=== PATIENT | female | born 1985 | race Caucasian/White ===

== ENCOUNTER 2023-08-09 10:06 | Emergency (ER) | payer MEDICAID, SELFPAY ==
[2023-08-09 10:08] VITALS: BP 130/90; PULSE 112; RESP 16; TEMP 36.4; O2SAT 97; BMI 38.9
--- NOTE | 2023-08-09 10:42 | ED.VIS.DENTA ---
HPI History of Present Illness Chief Complaint: Dental Narrative Narrative: 37-year-old female presents with right upper jaw pain and swelling from a dental abscess that she has had for the last few days. She states that she was seen in urgent care and diagnosed with a dental abscess. She had mild swelling of her cheek yesterday. She started clindamycin 450 mg 3 times a day and is supposed to follow-up with her dentist. She noticed this morning when she awoke that her right cheek was more swollen and she is having more facial pain. She somewhat lightheaded as well. She denies fevers or chills. She is a smoker. PFSH PFSH Home Medications ibuprofen 800 mg tablet 800 mg PO Q8H PRN pain #30 tabs 08/09/23 [Rx Last Taken Unknown] tramadol 50 mg tablet 50 mg PO Q6H PRN pain 3 days #12 tabs 08/09/23 [Rx Last Taken Unknown] Allergy/AdvReac Type Severity Reaction Status Date / Time Penicillins Allergy Severe Anaphylaxis Verified 08/09/23 10:08 amoxicillin Allergy Unknown PT UNSURE Verified 08/09/23 10:08 OF REACTION ROS ROS ED ROS Narrative Constitutional: No fever, no chills. HEENT: No sore throat. No neck pain. No loss of vision. No rhinorrhea. No swelling of right cheek. Positive pain in right upper jaw/dental pain. Cardiovascular: No chest pain. No palpitations. No pedal edema. Respiratory: No cough, no shortness of breath. Abdominal: No abdominal pain. No nausea. No vomiting. Genitourinary: No dysuria. No hematuria. Musculoskeletal: No myalgias. No arthralgias. Neurologic: No headaches. No dizziness. Positive lightheadedness. Skin: No rash. No change in color. Psychiatric: No depression. No anxiety. EXAM Physical Exam Narrative Exam Narrative: Afebrile. Vital signs noted. Toxic appearing. HEENT: Normocephalic. Atraumatic. PERRL, EOMI. Neck soft and supple. No point tenderness or step off. Swelling of right cheek. Positive fillings with poor dentition right upper jaw and molars. No fluctuance of the gum. Cardiovascular: Regular rate and rhythm. No murmurs, rubs, or gallops appreciated. Respiratory: No tachypnea. Lungs clear to auscultation bilaterally. Gastrointestinal: Abdomen soft, nontender, with normoactive bowel sounds. No rebound or guarding. Neurological: Awake. Alert. Nonfocal, nonlateralizing. Skin: No rash. Normal color. No pallor. Musculoskeletal: No pedal edema. Full range of motion extremities. Const Vital Signs: 08/09/23 10:08 Temperature 97.6 F L Temperature Source Temporal Pulse Rate 112 H Respiratory Rate 16 Blood Pressure 130/90 H Blood Pressure Mean 103 Pulse Ox 97 Oxygen Delivery Method Room Air MDM MDM MDM Narrative Medical decision making narrative: Feel that the patient has pain and swelling secondary to inflammation from a periapical/dental abscess. I did offer needle aspiration of her cheek, but she declined. I do feel that is more inflammatory. She is only taking 2 tablets of the acetaminophen/ibuprofen combination pill. She was told to stop taking this combination pill and I wrote her prescription for 800 mg ibuprofens to take every 8 hours. Additionally, I wrote her 12 tablets of tramadol for breakthrough pain. Smoking cessation was discussed. No feel laboratory work or imaging is indicated. I do feel that this is secondary to her smoking and continued dental abscess. I feel she can be discharged to follow-up with a dentist. Return instructions to the emergency department were reviewed. Disposition is discharged home in stable condition. Patient is agreeable to the plan. History & Record Review Discussion w/independent historian: Patient Discharge Plan Triage Chief Complaint: Dental ED Provider: Naresh Gonzalez Dx/Rx/DC Orders Clinical Impression: Swelling of right side of face, Dental abscess Instructions: ED Dental Abscess Prescriptions: New ibuprofen 800 mg tablet 800 mg PO Q8H PRN (Reason: pain) Qty: 30 0RF tramadol 50 mg tablet 50 mg PO Q6H PRN (Reason: pain) 3 Days Qty: 12 0RF Primary Care Provider: Waqar Briones Referrals: Waqar Briones MD [Primary Care Provider] - 3-5 Days if not improving Activity Restrictions/Additional Instructions: Follow-up with your dentist soon as possible. Stop smoking. Continue your clindamycin. Return with fever, new or worsening symptoms. Take combination ibuprofen, and take the prescription strength ibuprofen. You may take tramadol as needed for breakthrough pain. Disposition Disposition: Home, Self Care
== END 2023-08-09 11:00 | disposition home or self-care (01) ==
LOC: ED 10:54
PROVIDERS: Emergency Provider Emergency Medicine; PCP Family Medicine; Visit Provider Emergency Medicine
DX: K04.7 Periapical abscess without sinus (principal); R22.0 Localized swelling, mass and lump, head; F17.200 Nicotine dependence, unspecified, uncomplicated
CPT/HCPCS: 99282

== ENCOUNTER 2024-01-21 07:42 | Emergency (ER) | payer MEDICAID, SELFPAY ==
[2024-01-21 07:43] VITALS: BP 161/105; PULSE 71; RESP 16; TEMP 36.1; O2SAT 100; BMI 43.9
[2024-01-21 07:45] VITALS: BP 157/102; PULSE 67; RESP 14; TEMP 36.1; O2SAT 98
--- NOTE | 2024-01-21 08:03 | CT_ITS ---
INDICATION: Kidney Stone EXAMINATION: CT ABDOMEN AND PELVIS WITHOUT CONTRAST - CT Abdomen And Pelvis W/O Contrast Injection TECHNIQUE: Helically acquired images were obtained of the abdomen and pelvis without oral or IV contrast. The protocol utilizes one or more of the following dose reduction techniques: automated exposure control, adjustment of mA and/or kV according to patient size,and/or use of iterative reconstruction technique. IV Contrast dosage and agent: None. Oral contrast: None. RADIATION DOSAGE (If Supplied By Facility): CTDIvol = ( 22.71 ) mGy, DLP = ( 1096.05 ) mGycm COMPARISON: No relevant prior comparison study available FINDINGS: LOWER CHEST: Lung bases are clear. No cardiomegaly or pericardial effusion. The lack of intravenous contrast limits evaluation of solid visceral organs. LIVER: There is a too small to characterize low-attenuation focus within the left hepatic lobe which may reflect a cyst or hemangioma. GALLBLADDER AND BILIARY TREE: There are surgical clips within the gallbladder fossa consistent with prior cholecystectomy. No intra- or extrahepatic biliary ductal dilation. PANCREAS: No focal cystic or solid mass. SPLEEN: Normal size without focal cystic or solid mass. ADRENAL GLANDS: No nodules. KIDNEYS AND URETERS: Normal renal size and position. No hydronephrosis. PERITONEUM: No ascites or free air. No other fluid collection. There are 2 surgical within the pelvis. BOWEL: No evidence of acute appendicitis. No stomach or bowel distension. There are diverticula arising from the colon. No focal inflammatory change. LYMPH NODES: No enlarged mesenteric or retroperitoneal lymph nodes. VESSELS: Aorta is non-dilated. There are peripheral calcifications of the abdominal aorta consistent with atherosclerosis. URINARY BLADDER: Unremarkable. REPRODUCTIVE ORGANS: No pelvic masses. ABDOMINAL WALL: No discrete abdominal or pelvic wall hernia. BONES: There is degenerative disc disease at L5-S1. CT/Abdomen/Pelvis without Cont IMPRESSION: No acute intra-abdominal process. Colonic diverticulosis. Atherosclerosis. Electronically Signed: Alondra Adame MD at 9:19 EDT ,
--- NOTE | 2024-01-21 08:04 | EDS_ITS ---
HPI History of Present Illness Chief Complaint: Flank Pain Informant: patient Narrative Narrative: 38-year-old female presenting to the emergency room with a chief complaint of low back pain. Patient notes pain in the low back past 3 days. Patient states it is wax and wane but always has been there. She feels better laying on her right side. She notes that the left leg feels sore when she moves. She denies any foot drop or sensory loss. No loss of bowel or bladder control. She does note that her urine has been darker than normal. She notes a history of kidney stones. She denies any known inciting event that would have injured her back. She states she went to urgent care and was referred to emergency. She states she was told that she did not have blood in her urine. She denies history of cancer or immunosuppression IV drug use recent fever or rashes. [facility] Medical History (Updated 01/21/24 @ 09:[address] Param Gant DO) Kidney stone Home Medications ?Medication ?Instructions ?Recorded ?Last Taken ?Type cyclobenzaprine 10 mg tablet 10 mg PO TID PRN Muscle Spasm #15 01/21/24 Unknown Rx TABLETS duloxetine 30 mg capsule,delayed 30 mg PO DAILY 01/21/24 Unknown History release lisinopril 20 1 tab PO DAILY 01/21/24 Unknown History mg-hydrochlorothiazide 12.5 mg tablet metformin 1,000 mg tablet 1,000 mg PO BID 01/21/24 Unknown History oxycodone-acetaminophen 5 mg-325 1 tab PO Q6H PRN PRN Pain 3 days 01/21/24 Unknown Rx mg tablet #12 TABLETS prednisone 20 mg tablet 60 mg (3 x 20 mg) PO DAILY #15 01/21/24 Unknown Rx TABLETS Allergy/AdvReac Type Severity Reaction Status Date / Time Penicillins Allergy Severe Anaphylaxis Verified 01/21/24 07:44 amoxicillin Allergy Unknown PT UNSURE Verified 01/21/24 07:44 OF REACTION Social History Smoking Status: Former smoker ROS ROS ED Constitutional Constitutional ED: Denies chills, fever(s) or weight loss Eyes Eyes: Denies change in vision or diplopia ENT ENT ED: Denies ear pain, rhinorrhea or sore throat Cardiovascular Cardiovascular: Denies chest pain, orthopnea, palpitations or racing heartbeat Respiratory/Chest Respiratory/Chest: Denies cough, dyspnea or orthopnea Gastrointestinal Gastrointestinal: Denies abdominal pain, diarrhea, melena, nausea or vomiting Genitourinary Genitourinary ED: Denies dysuria, hematuria or urinary frequency Musculoskeletal Musculoskeletal: Reports back pain; Denies arthralgias or myalgias Integumentary Denies abscess or rash Neurologic Neurologic: Denies headache(s), paresthesias or weakness Psychiatric Psychiatric: Denies anxiety, depression, suicidal ideation or suicidal thoughts Endocrine Endocrinology: Denies polydipsia, polyphagia or polyuria Allergic/Immunologic Allergic/Immunologic ED: Denies mouth swelling, tongue swelling or urticaria EXAM Physical Exam Narrative Exam Narrative: 38-year-old female laying back in the bed legs curled up lying mostly on the right side. Const Vital Signs: 01/21/24 07:43 01/21/24 07:45 Temperature 97 F L 97 F L Temperature Source Temporal Temporal Pulse Rate 71 67 Respiratory Rate 16 14 Blood Pressure 161/105 H 157/102 H Blood Pressure Mean 123 120 Pulse Ox 100 98 Oxygen Delivery Method Room Air Room Air Positive well nourished, well developed and obese General Appearance ED: well developed Nutritional Appearance: obese HEENT Reports normocephalic, head/scalp atraumatic and moist mucous membranes Eyes PERRL and EOMs intact bilaterally Neck no lymphadenopathy, supple and no JVD Resp normal respiratory effort and clear to auscultation bilaterally Cardio regular rate, regular rhythm and no murmurs GI normal to inspection, nondistended, normoactive bowel sounds and non-tender Palpation: soft Back/Spine no CVA tenderness Back/Spine Narrative: Slow deliberate movements. Tender to palpation lumbar paraspinal musculature and the left SI joint. No midline tenderness. No rashes seen. Extremity normal to inspection General Extremety ED: Negative for edema General Extremity: Negative for edema Neuro oriented x3 and CN's II-XII intact bilaterally Sensorium / Orientation: alert Sensory Exam: No sensory level loss detected Motor Exam: strength 5/5 throughout; Negative for strength abnormal Psych mental status grossly normal Mood & Affect: Negative for depressed or tearful Skin no rashes or lesions noted and no wounds MDM MDM MDM Narrative Medical decision making narrative: Differential diagnosis includes but not limited to UTI/pyelonephritis renal cyst retroperitoneal hematoma muscular strain SI joint pain/sacroiliitis, psoas hematoma kidney stone diverticulitis/colitis ovarian cyst ovarian abscess. Urinalysis shows 5-10 squamous cells 2+ bacteria but no overt infection and most likely represents a contamination. CT of the abdomen pelvis without IV contrast was obtained. I do not see an obvious kidney stone. I do not see any abnormal fluid collection. There is a surgical clip noted. Patient notes that she was told that her tubal ligation clip had migrated. She was told this about 6 years ago. I do not believe this is causing any problems. At that point after reviewing the CT her history and the urine specimen for like her pain is most likely musculoskeletal in nature. Probably muscle spasm with a component of SI joint somatic dysfunction. I can place her on muscle relaxant burst prednisone and some pain medication. Would recommend PCP follow-up as well as follow-up with her [facility]. Patient notes understanding of plans, History & Record Review Discussion w/independent historian: Patient Lab Data Attestation: I reviewed the patient's lab results. Labs: Laboratory Results - last 24 hr 01/21/24 07:55 Urine Color Yellow Urine Clarity Sl. Cloudy Urine pH 5.0 Ur Specific Williams 1.025 Urine Protein 30 H Urine Glucose (UA) Normal Urine Ketones 5 H Urine Occult Blood 10 H Urine Nitrite Negative Urine Bilirubin 1 H Urine Urobilinogen 1 H Ur Leukocyte Esterase 25 H Urine RBC 0-5 SEEN Urine WBC 0-5 SEEN Ur Squamous Epith Cells 5-10 SEEN Urine Bacteria 2+ Urine Mucus 2+ Urine Test Negative Radiography Diagnostic Testing: Clinical Impression(s) from Imaging Studies Abdomen/Pelvis CT 01/21/24 08:03 IMPRESSION: No acute intra-abdominal process. Colonic diverticulosis. Atherosclerosis. Electronically Signed: Alondra Adame MD at 9:19 EDT , Discharge Plan Triage Chief Complaint: Flank Pain ED Provider: Param Gant Dx/Rx/DC Orders Clinical Impression: Acute back pain, Back muscle spasm Instructions: ED Back Pain (Acute or Chronic) Prescriptions: New oxycodone-acetaminophen 5-325 mg tablet 1 tab PO Q6H PRN PRN (Reason: Pain) 3 Days Qty: 12 0RF cyclobenzaprine 10 mg tablet 10 mg PO TID PRN (Reason: Muscle Spasm) Qty: 15 0RF prednisone 20 mg tablet 60 mg PO DAILY Qty: 15 0RF No Action lisinopril-hydrochlorothiazide 20-12.5 mg tablet 1 tab PO DAILY metformin 1,000 mg tablet 1,000 mg PO BID duloxetine 30 mg capsule,delayed release(DR/EC) 30 mg PO DAILY Primary Care Provider: Waqar Briones Referrals: Waqar Briones MD [Primary Care Provider] - 1-2 Weeks Activity Restrictions/Additional Instructions: As discussed I would mention the surgical clip noted on your abdominal CT to your [facility] next appointment. Print Language: Andorran Disposition Disposition: Home, Self Care
[2024-01-21] MEDS: 0.9% Normal Saline (1000mL) 1,000 ML 250 ML IV (08:11)
[2024-01-21] MEDS: Ketorolac 30 MG/ML Syringe IV (08:12)
[2024-01-21 08:19] LABS: Color, Urine Yellow (Yellow); Glucose, Dipstick Normal (Normal); Ketone-Dipstick 5 mg/dl (Negative); Leukocyte Esterase-Dipstick 25 /ul (Negative); Nitrite-Dipstick Negative (Negative); Occult Blood-Urine 10 /ul (Negative); Protein-Dipstick 30 mg/dl (Negative); Specific Gravity, Urine 1.025 (1.002-1.030); Urine Clarity Sl. Cloudy (Clear); Urine Urobilinogen 1 mg/dl (Normal)
[2024-01-21 08:54] LABS: Urine Bilirubin Dipstick 1 mg/dL (Negative)
[2024-01-21 08:56] LABS: Bacteria 2+ /hpf (None Seen)
[2024-01-21 08:57] LABS: Internal QC Validated? YES +Cl - CLEAR BKGD; Mucous, Urine 2+ /hpf (<or=2+); Pregnancy, Urine Negative Negative; Record Kit Lot#,Urine Preg HCG0000735774; Red Blood Cells-Urine 0-5 SEEN /hpf (0-5); Squamous Epithelial Cells - UA 5-10 SEEN /hpf (5-10); White Blood Cells 0-5 SEEN /hpf (0-5)
[2024-01-21 09:52] VITALS: BP 122/83; PULSE 68; RESP 18; TEMP 36.8; O2SAT 98
== END 2024-01-21 09:56 | disposition home or self-care (01) ==
PROVIDERS: Emergency Provider Emergency Medicine; PCP Family Medicine; Visit Provider Emergency Medicine
DX: M54.50 Low back pain, unspecified (principal); Z87.891 Personal history of nicotine dependence; R10.9 Unspecified abdominal pain; M62.830 Muscle spasm of back; E66.9 Obesity, unspecified
CPT/HCPCS: 74176; 81001; 81025; 96361; 96374; 99283; J7030; A4216

== ENCOUNTER 2024-06-18 08:48 | Emergency (ER) | payer MEDICAID, SELFPAY ==
[2024-06-18 08:48] VITALS: BP 138/93; PULSE 78; RESP 14; TEMP 36.8; O2SAT 99; BMI 441.6
--- NOTE | 2024-06-18 10:21 | ED.VIS.BACK ---
HPI History of Present Illness Chief Complaint: Back Informant: patient Narrative Narrative: 38-year-old female gradual onset pain in her right low back with radiation into her buttock and down her right leg at times sometimes to her foot, started 2 weeks ago. No associated injury, but she has a torn meniscus in her right knee and had a dislocated patella, Ortho has her seen physical therapy, and it is while she was at therapy that she started getting the pain, but now it is to the point where she cannot perform therapy because the pain in her back is so severe. She was put on steroids by her orthopedic but she states it did not help at all and she is done with those. She denies any bowel or bladder dysfunction. No saddle anesthesia. Sometimes the right leg gives out on her, but overall it works and there is no numbness. PFSH [facility] Medical History Presence of double-J stent Cholecystectomy planned Back pain Herniated disc Kidney stone Home Medications ?Medication ?Instructions ?Recorded ?Last Taken ?Type duloxetine 30 mg capsule,delayed 120 mg PO DAILY 01/21/24 Unknown History release lisinopril 20 1 tab PO DAILY 01/21/24 Unknown History mg-hydrochlorothiazide 12.5 mg tablet metformin 1,000 mg tablet 1,000 mg PO BID 01/21/24 Unknown History albuterol sulfate 90 mcg/actuation 2 puff inhalation Q4H PRN PRN 06/18/24 Unknown History aerosol inhaler shortness of breath or wheezing cyclobenzaprine 10 mg tablet 10 mg PO TID PRN Muscle Spasm #15 06/18/24 Unknown Rx TABLETS meloxicam 15 mg tablet 15 mg PO DAILY 06/18/24 Unknown History oxycodone-acetaminophen 5 mg-325 1 tab PO Q6H PRN pain 3 days #12 06/18/24 Unknown Rx mg tablet (Percocet) tabs Allergy/AdvReac Type Severity Reaction Status Date / Time Penicillins Allergy Severe Anaphylaxis Verified 01/21/24 07:44 amoxicillin Allergy Unknown PT UNSURE Verified 01/21/24 07:44 OF REACTION Surgical History (Updated 06/18/24 @ 09:34 by Omid Estevez) Tubal ligation status Hx of section Social History Smoking Status: Former smoker ROS ROS ED Constitutional Constitutional ED: Denies chills or fever(s) Gastrointestinal Gastrointestinal: Denies abdominal pain, constipation, fecal incontinence, nausea or vomiting Genitourinary Genitourinary ED: Reports other Details: no urinary retention ; Denies abdominal discomfort or urinary incontinence Musculoskeletal Musculoskeletal: Reports as per HPI and back pain; Denies neck pain Integumentary Denies rash or wounds Neurologic Neurologic: Denies headache(s), paresthesias or weakness EXAM Physical Exam Const Vital Signs: 06/18/24 08:48 Temperature 98.3 F Temperature Source Temporal Pulse Rate 78 Respiratory Rate 14 Blood Pressure 138/93 H Blood Pressure Mean 108 Pulse Ox 99 Oxygen Delivery Method Room Air Positive well nourished, well developed and obese General Appearance ED: well developed and NAD Nutritional Appearance: obese HEENT Negative for trauma or tenderness Eyes PERRL and EOMs intact bilaterally Neck full ROM and supple GI normal to inspection, nondistended, normoactive bowel sounds, soft to palpation and non-tender Back/Spine normal to inspection Lumbar Spine / Lower Back: ROM limited, paraspinal muscle tenderness right and straight leg raise negative bilaterally; Negative for lumbar spinal tenderness Extremity normal to inspection, full ROM and no pedal edema Neuro oriented x3 and no sensory deficits noted Sensorium / Orientation: alert Motor Exam: strength 5/5 throughout and clonus absent Deep Tendon Reflexes: Rt Patellar (L4): 1+, Lt Patellar (L4): 1+, Rt Ankle (S1): 1+ and Lt Ankle (S1): 1+ Deep Tendon Reflexes Back: Rt Patellar (L4): 1+, Lt Patellar (L4): 1+, Rt Ankle (S1): 1+ and Lt Ankle (S1): 1+ Plantar Reflex: Downgoing: bilateral Psych mental status grossly normal and thought process normal Mood & Affect: tearful Skin no rashes or lesions noted and no wounds MDM MDM MDM Narrative Medical decision making narrative: At this time patient is testing negative for acute radiculopathy with negative straight leg raises including negative cross straight leg raise. Her reflexes are diminished but symmetric bilaterally and she has no sciatica symptoms in the left lower extremity. At this time no emergent advanced imaging is indicated. I reviewed an old CT scan from December of this year. It did see DDD at the L5-S1 level. It certainly is possible that she is having intermittent sciatica. Recommend she follow-up with her primary care doctor or orthopedic for further evaluation and care, at this time will provide symptomatic relief and a prescription for some oxycodone she is comfortable with that plan. Also I consider doing x-rays but given her age, health, and lack of an injury or bony tenderness they are not emergently indicated at this time. History & Record Review Additional record(s) reviewed:: Prior labs Discharge Plan Triage Chief Complaint: Back ED Provider: Nazario Eubanks Dx/Rx/DC Orders Clinical Impression: Acute low back pain with right-sided sciatica Instructions: ED Sciatica Prescriptions: New oxycodone-acetaminophen [Percocet] 5-325 mg tablet 1 tab PO Q6H PRN (Reason: pain) 3 Days Qty: 12 0RF cyclobenzaprine 10 mg tablet 10 mg PO TID PRN (Reason: Muscle Spasm) Qty: 15 0RF No Action lisinopril-hydrochlorothiazide 20-12.5 mg tablet 1 tab PO DAILY metformin 1,000 mg tablet 1,000 mg PO BID duloxetine 30 mg capsule,delayed release(DR/EC) 120 mg PO DAILY albuterol sulfate 90 mcg/actuation HFA aerosol inhaler 2 puff inhalation Q4H PRN PRN (Reason: shortness of breath or wheezing) meloxicam 15 mg tablet 15 mg PO DAILY Primary Care Provider: Waqar Briones Referrals: Waqar Briones MD [Primary Care Provider] - (or your orthopedic) Activity Restrictions/Additional Instructions: If you are taking meloxicam every day, do not take other anti-inflammatories such as ibuprofen or Aleve since that is already one. Print Language: Yoruba Disposition Disposition: Home, Self Care
[2024-06-18] MEDS: Ketorolac 60 MG/2 ML Vial IM (10:34)
[2024-06-18] MEDS: oxyCODONE 5 MG Tablet PO (10:35)
[2024-06-18] MEDS: Orphenadrine 60 MG/2 ML Ampul IM (10:35)
== END 2024-06-18 10:59 | disposition home or self-care (01) ==
PROVIDERS: Emergency Provider Emergency Medicine; PCP Family Medicine; Visit Provider Emergency Medicine
DX: M54.31 Sciatica, right side (principal); Z87.891 Personal history of nicotine dependence; M51.372 Other intervertebral disc degeneration, lumbosacral region with discogenic back pain and lower extremity pain; E66.9 Obesity, unspecified
CPT/HCPCS: 96372; 99283

== ENCOUNTER 2024-09-14 11:24 | Emergency (ER) | payer MEDICAID, SELFPAY ==
[2024-09-14 11:24] VITALS: BP 131/100; PULSE 77; RESP 16; TEMP 36.7; O2SAT 99; BMI 51.1
--- NOTE | 2024-09-14 13:39 | EX.ED.DYSGE1 ---
HPI History of Present Illness Chief Complaint: Ear Problem Narrative Narrative: Patient is a 38-year-old female with past medical history of hypertension, diabetes who presents to the emergency department with a chief complaint of left-sided ear pain. Patient states that this is For the past 4 days she states that she has been trying [id number] medication including Tylenol ibuprofen, Orajel tried to put peroxide in her left ear and see if there is a significant wax in there which she states there was. States that given that this been on for days now she wanted to come here for the valuation management. [facility] Medical History Presence of double-J stent Cholecystectomy planned Back pain Herniated disc Kidney stone Home Medications ?Medication ?Instructions ?Recorded ?Last Taken ?Type duloxetine 30 mg capsule,delayed 120 mg PO DAILY 01/21/24 Unknown History release lisinopril 20 1 tab PO DAILY 01/21/24 Unknown History mg-hydrochlorothiazide 12.5 mg tablet metformin 1,000 mg tablet 1,000 mg PO BID 01/21/24 Unknown History albuterol sulfate 90 mcg/actuation 2 puff inhalation Q4H PRN PRN 06/18/24 Unknown History aerosol inhaler shortness of breath or wheezing cyclobenzaprine 10 mg tablet 10 mg PO TID PRN Muscle Spasm #15 06/18/24 Unknown Rx TABLETS meloxicam 15 mg tablet 15 mg PO DAILY 06/18/24 Unknown History oxycodone-acetaminophen 5 mg-325 1 tab PO Q6H PRN pain 3 days #12 06/18/24 Unknown Rx mg tablet (Percocet) tabs ciprofloxacin 0.3 %-dexamethasone 4 drp LEFT EAR Q12H 7 days #7.5 mL 09/14/24 Unknown Rx 0.1 % ear drops,suspension clindamycin HCl 300 mg capsule 300 mg PO TID 7 days #21 caps 09/14/24 Unknown Rx Allergy/AdvReac Type Severity Reaction Status Date / Time Penicillins Allergy Severe Anaphylaxis Verified 09/14/24 11:24 amoxicillin Allergy Unknown PT UNSURE Verified 09/14/24 11:24 OF REACTION Surgical History Tubal ligation status Hx of section Social History Smoking Status: Former smoker ROS ROS ED ROS Narrative Constitutional: Denies any fevers, chills, headaches, lightness, dizziness Eyes, ears, nose, throat: Complains of ear pain as noted above denies change in vision double vision blurry vision Cardiovascular: Denies chest pain or palpitations Respiratory: Denies shortness of breath Abdomen: Denies nausea and vomiting Neurological: Denies numbness, weakness, tingling Skin: Denies rashes or lesions EXAM Physical Exam Narrative Exam Narrative: General: Patient was lying in bed rest comfortably did not appear to be in acute distress Head: Atraumatic, normocephalic Eyes, ears, nose, throat: Patient has mild erythema to the left external auditory canal with no concern for otitis media on that side, no concern for mastoiditis, patient has poor dentition noted and has a cracked broken tooth on the back left side no concern for abscess at this point time. No sublingual swelling PERRL bilaterally, EOMI bilaterally, no conjunctival injection noted Neck: Soft, supple, trachea midline, no concern for Colt angina Cardiovascular: Regular rate and rhythm no murmurs gallops rubs noted Respiratory: Clear to auscultation bilaterally no rales rhonchi or wheezes noted Extremities: +5/5 strength noted in the bilateral upper and lower extremities, radial pulses +2/4 in the bilateral extremities Neurological: Patient is following commands knew that she was at [facility] year is 2024 Skin: Warm, dry, intact no rashes or lesions noted Const Vital Signs: 09/14/24 11:24 Temperature 98.0 F Temperature Source Oral Pulse Rate 77 Respiratory Rate 16 Blood Pressure 131/100 H Blood Pressure Mean 110 Pulse Ox 99 Oxygen Delivery Method Room Air MDM MDM MDM Narrative Medical decision making narrative: Patient is a 38-year-old female who presented to the emergency department chief complaint of left ear pain. On the differential diagnose includes but not limited to otitis media, otitis externa, mastoiditis although once again feel this less likely as she has no proptosis of ear no tenderness palpation over the mastoid process, dental infection. At this point in time the patient will be treated for an otitis externa as there is mild irritation and erythema in the expiratory auditory canal on the left side and she has tenderness to palpation on exam over the cracked tooth region we will also treat her for odontogenic infection. She was advised to rotate Tylenol and ibuprofen [id number] for pain control. She will be placed on Ciprodex eardrops as well as clindamycin. She is advised to follow-up with her primary care physician and return with worsening symptoms or concerns. She is agreeable this plan all question concerns answered she was discharged home in stable condition. Discharge Plan Triage Chief Complaint: Ear Problem ED Provider: Roby Snow Dx/Rx/DC Orders Clinical Impression: Otitis externa, Dental infection Prescriptions: New ciprofloxacin-dexamethasone 0.3-0.1 % drops,suspension 4 drp LEFT EAR Q12H 7 Days Qty: 7.5 0RF clindamycin HCl 300 mg capsule 300 mg PO TID 7 Days Qty: 21 0RF No Action lisinopril-hydrochlorothiazide 20-12.5 mg tablet 1 tab PO DAILY metformin 1,000 mg tablet 1,000 mg PO BID duloxetine 30 mg capsule,delayed release(DR/EC) 120 mg PO DAILY albuterol sulfate 90 mcg/actuation HFA aerosol inhaler 2 puff inhalation Q4H PRN PRN (Reason: shortness of breath or wheezing) meloxicam 15 mg tablet 15 mg PO DAILY oxycodone-acetaminophen [Percocet] 5-325 mg tablet 1 tab PO Q6H PRN (Reason: pain) 3 Days Qty: 12 0RF cyclobenzaprine 10 mg tablet 10 mg PO TID PRN (Reason: Muscle Spasm) Qty: 15 0RF Primary Care Provider: Waqar Briones Referrals: Waqar Briones MD [Primary Care Provider] - Activity Restrictions/Additional Instructions: Follow-up with your physician outpatient setting. Take antibiotics and eardrops as prescribed. Rotate Tylenol and ibuprofen [id number]. Return with worsening symptoms or any other concerns Print Language: Slovak Disposition Disposition: Home, Self Care
[2024-09-14] MEDS: Ondansetron ODT 4 MG Tablet PO (13:40)
[2024-09-14] MEDS: Clindamycin HCl 150 MG Capsule 300 MG PO (13:40)
[2024-09-14] MEDS: HYDROcodone Bitartrate/Apap 5/325 Tablet PO (13:40)
== END 2024-09-14 13:50 | disposition home or self-care (01) ==
PROVIDERS: Emergency Provider Emergency Medicine; PCP Family Medicine; Visit Provider Emergency Medicine
DX: H92.02 Otalgia, left ear (principal); E11.9 Type 2 diabetes mellitus without complications; Z87.891 Personal history of nicotine dependence; I10 Essential (primary) hypertension; K04.7 Periapical abscess without sinus
CPT/HCPCS: 99283

== ENCOUNTER 2024-10-19 12:39 | Emergency (ER) | payer MEDICAID, SELFPAY ==
[2024-10-19 12:39] VITALS: BP 132/84; PULSE 74; RESP 16; TEMP 36.9; O2SAT 100; BMI 44.9
[2024-10-19 12:50] VITALS: BP 133/70; PULSE 80; RESP 18; TEMP 36.7; O2SAT 99
--- NOTE | 2024-10-19 13:28 | EX.ED.DYSGE1 ---
HPI <MANNY Lenz - Last Filed: 10/19/24 13:38> History of Present Illness Chief Complaint: Abscess Narrative Narrative: Patient is a 38-year-old female with history of obesity, diabetes, mental health disease who presents to the emergency department for concern for a wound to the top of the right foot. Pay states 3 days ago, she was moving her left foot over the right and took off a piece of skin. She is concerned because she is diabetic, there is some redness around the wound that she might have cellulitis. She denies any fever chills nausea or vomiting. PFS <MANNY Lenz - Last Filed: 10/19/24 13:38> [facility] Medical History Presence of double-J stent Cholecystectomy planned Back pain Herniated disc Kidney stone Home Medications ?Medication ?Instructions ?Recorded ?Last Taken ?Type duloxetine 30 mg capsule,delayed 120 mg PO DAILY 01/21/24 Unknown History release lisinopril 20 1 tab PO DAILY 01/21/24 Unknown History mg-hydrochlorothiazide 12.5 mg tablet metformin 1,000 mg tablet 1,000 mg PO BID 01/21/24 Unknown History albuterol sulfate 90 mcg/actuation 2 puff inhalation Q4H PRN PRN 06/18/24 Unknown History aerosol inhaler shortness of breath or wheezing cyclobenzaprine 10 mg tablet 10 mg PO TID PRN Muscle Spasm #15 06/18/24 Unknown Rx TABLETS meloxicam 15 mg tablet 15 mg PO DAILY 06/18/24 Unknown History oxycodone-acetaminophen 5 mg-325 1 tab PO Q6H PRN pain 3 days #12 06/18/24 Unknown Rx mg tablet (Percocet) tabs ciprofloxacin 0.3 %-dexamethasone 4 drp LEFT EAR Q12H 7 days #7.5 mL 09/14/24 Unknown Rx 0.1 % ear drops,suspension clindamycin HCl 300 mg capsule 300 mg PO TID 7 days #21 caps 09/14/24 Unknown Rx doxycycline hyclate 100 mg tablet 100 mg PO BID #10 tabs 10/19/24 Unknown Rx Allergy/AdvReac Type Severity Reaction Status Date / Time Penicillins Allergy Severe Anaphylaxis Verified 10/19/24 12:41 amoxicillin Allergy Unknown PT UNSURE Verified 10/19/24 12:41 OF REACTION Surgical History Tubal ligation status Hx of section Social History Smoking Status: Former smoker ROS <MANNY Lenz - Last Filed: 10/19/24 13:38> ROS ED ROS Narrative Constitutional: Negative for fever, chills, weight loss, weakness Eyes: Negative for vision loss, vision change, double vision ENT: Negative for any sore throat, ear pain, congestion Cardiovascular: Negative for any chest pain, tightness, palpitations Respiratory: Negative for any cough, sputum production, hemoptysis, dyspnea, dyspnea on exertion, orthopnea Gastrointestinal: Negative for any abdominal pain, nausea, vomiting, diarrhea, constipation, blood in stool, blood in vomit : Negative for any urinary frequency, dysuria, retention, blood in urine Muscle skeletal: Negative for any neck pain, back pain Neurological: Negative for any headache, syncope, dizziness Skin: Negative for any rashes, itching, lacerations. Positive for abrasion Psychiatric: Negative for any depression, anxiety, stress, suicidal ideation, homicidal ideation Hematologic: Negative for any excessive bruising, easy bleeding EXAM <MANNY Lenz - Last Filed: 10/19/24 13:38> Physical Exam Narrative Exam Narrative: Vital signs reviewed. Extremities: No peripheral edema, no signs of gross trauma or deformity. Active full range of motion of all extremities. On the dorsal aspect of the right foot, there is a 1 cm x 1 cm abrasion. There are some slight redness around the area. However this does not appear to be grossly infected. There is no abscess. There is no drainage. Granulation tissue is around the wound. Neuro: Cranial nerves II through XII intact, no focal neurological deficits. Skin: Clean dry and intact with no rash, purpura, petechiae, vesicles or pustules. Backs/flank: No CVA tenderness, no midline spinal tenderness, no deformity. Psych: Normal mood and affect. No SI, HI or acute psychosis. Const Vital Signs: 10/19/24 12:39 10/19/24 12:50 Temperature 98.4 F 98.0 F Temperature Source Oral Oral Pulse Rate 74 80 Respiratory Rate 16 18 Blood Pressure 132/84 H 133/70 H Blood Pressure Mean 100 91 Pulse Ox 100 99 Oxygen Delivery Method Room Air Room Air <Dr. Param Gant DO - Last Filed: 10/19/24 14:15> Physical Exam Const Vital Signs: 10/19/24 12:39 10/19/24 12:50 Temperature 98.4 F 98.0 F Temperature Source Oral Oral Pulse Rate 74 80 Respiratory Rate 16 18 Blood Pressure 132/84 H 133/70 H Blood Pressure Mean 100 91 Pulse Ox 100 99 Oxygen Delivery Method Room Air Room Air [facility] <Vineet HoganMANNY nevarez - Last Filed: 10/19/24 13:38> [facility] Treatment and Re-Evaluation :: Differential diagnosis includes however is not limited to: Cellulitis, abscess, superficial abrasion, osteomyelitis Patient appears generally well, vital signs are stable, patient is nontoxic-appearing. Presenting to the [facility] part with complaints of wound evaluation on the top of the right foot. On my evaluation, this does show a small abrasion, I have low suspicion for any cellulitis or deep tissue infection. However patient is concerned and is diabetic. Patient states he has had cellulitis in the past. Patient placed on a short course of doxycycline, she will continue to use bacitracin like dressings. Keep the area clean and dry. She will not use any peroxide. She is instructed return for any worsening symptoms <Dr. Param Gant DO - Last Filed: 10/19/24 14:15> [facility] History & Record Review Discussion w/independent historian: Patient Treatment and Re-Evaluation :: Differential diagnosis includes however is not limited to: Cellulitis, abscess, superficial abrasion, osteomyelitis Patient appears generally well, vital signs are stable, patient is nontoxic-appearing. Presenting to the [facility] part with complaints of wound evaluation on the top of the right foot. On my evaluation, this does show a small abrasion, I have low suspicion for any cellulitis or deep tissue infection. However patient is concerned and is diabetic. Patient states he has had cellulitis in the past. Patient placed on a short course of doxycycline, she will continue to use bacitracin like dressings. Keep the area clean and dry. She will not use any peroxide. She is instructed return for any worsening symptoms I have personally performed a face to face assessment of the patient and have reviewed the RUPAL Note. I performed a substantive portion of the visit including all aspects of the following. My mejia findings include: History is 38-year-old female diabetes history presenting with wound on her foot. Patient rubbed her foot with her other foot resulting in skin avulsion. She notes that now the wound appears to be turning a greenish color with some redness around bacteria she notes a chronic rash on her feet which she has been treating for athlete's foot. Exam is there is no evidence of significant cellulitis. There is a chronic appearing tinea looking rash of the bilateral feet on the toes and onto the dorsum of the distal foot. Over the midfoot on the right is a quarter sized area of skin avulsion with granulation tissue with a small amount of redness around the edge of the wound. I would not characterize this is cellulitic. There is no lymphangitic streaking. Medical Decison Making I would recommend continued local wound care. She should speak with her doctor regarding the chronic foot rash and further treatment for athlete's foot. Discharge Plan Triage Chief Complaint: Abscess ED Midlevel Provider: Vineet Lay ED Provider: Param Gant Dx/Rx/DC Orders Clinical Impression: Cellulitis of foot Instructions: ED Cellulitis Prescriptions: New doxycycline hyclate 100 mg tablet 100 mg PO BID Qty: 10 0RF No Action ciprofloxacin-dexamethasone 0.3-0.1 % drops,suspension 4 drp LEFT EAR Q12H 7 Days Qty: 7.5 0RF clindamycin HCl 300 mg capsule 300 mg PO TID 7 Days Qty: 21 0RF lisinopril-hydrochlorothiazide 20-12.5 mg tablet 1 tab PO DAILY metformin 1,000 mg tablet 1,000 mg PO BID duloxetine 30 mg capsule,delayed release(DR/EC) 120 mg PO DAILY albuterol sulfate 90 mcg/actuation HFA aerosol inhaler 2 puff inhalation Q4H PRN PRN (Reason: shortness of breath or wheezing) meloxicam 15 mg tablet 15 mg PO DAILY oxycodone-acetaminophen [Percocet] 5-325 mg tablet 1 tab PO Q6H PRN (Reason: pain) 3 Days Qty: 12 0RF cyclobenzaprine 10 mg tablet 10 mg PO TID PRN (Reason: Muscle Spasm) Qty: 15 0RF Primary Care Provider: Waqar Briones Referrals: Waqar Briones MD [Primary Care Provider] - Activity Restrictions/Additional Instructions: Keep the area clean and dry. Print Language: Georgian Disposition Disposition: Home, Self Care Discharge Date/Time: 10/19/24 14:13
== END 2024-10-19 14:13 | disposition home or self-care (01) ==
PROVIDERS: Emergency Provider Emergency Medicine; PCP Family Medicine; Visit Provider Emergency Medicine
DX: L03.115 Cellulitis of right lower limb (principal); E11.9 Type 2 diabetes mellitus without complications; E66.9 Obesity, unspecified; Z87.891 Personal history of nicotine dependence; S90.811A Abrasion, right foot, initial encounter; W26.8XXA Contact with other sharp object(s), not elsewhere classified, initial encounter
CPT/HCPCS: 99282

== ENCOUNTER 2024-10-30 07:37 | Emergency (ER) | payer MEDICAID, SELFPAY ==
[2024-10-30 07:38] VITALS: BP 146/103; PULSE 85; RESP 16; TEMP 36.4; O2SAT 100; BMI 43.4
--- NOTE | 2024-10-30 07:50 | ED.RN ---
PT PRESENTS TO THE ED WITH LEFT EAR PAIN. UPON THIS NURSE WALKING IN PT WAS VOMITING. PT STATES THE PAIN HAS BEEN UPSETTING HER STOMACH. PT RECENTLY TREATED WITH ABX FOR EAR INFECTION APROX 4 WEEKS AGO, AND THEN TREATED MORE RECENTLY WITH DOXYCYCLINE FOR CELLULITIS IN THE RIGHT FOOT.
--- NOTE | 2024-10-30 08:44 | EDS_ITS ---
HPI History of Present Illness Chief Complaint: Ear Problem Informant: patient Narrative Narrative: Patient 38-year-old female [facility] Medical History Presence of double-J stent Cholecystectomy planned Back pain Herniated disc Kidney stone Home Medications ?Medication ?Instructions ?Recorded ?Last Taken ?Type duloxetine 30 mg capsule,delayed 120 mg PO DAILY 01/20 Unknown History release lisinopril 20 1 tab PO DAILY 01/21/24 Unkn own History mg-hydrochlorothiazide 12.5 mg tablet metformin 1,000 mg tablet 1,000 mg PO BID 01/21/24 Unk nown History albuterol sulfate 90 mcg/actuation 2 puff inhalation Q 4H PRN PRN 06/18/24 Unknown History aerosol inhaler shortness of breath or wheez ing cyclobenzaprine 10 mg tablet 10 mg PO TID PRN Muscle S pasm #15 06/18/24 Unknown Rx TABLETS meloxicam 15 mg tablet 15 mg PO DAILY 06/18/24 Unkn own History oxycodone-acetaminophen 5 mg-325 1 tab PO Q6H PRN pain 3 days #12 06/18/24 Unknown Rx mg tablet (Percocet) tabs ciprofloxacin 0.3 %-dexamethasone 4 drp LEFT EAR Q12H 7 days #7.5 mL 09/14/24 Unknown Rx 0.1 % ear drops,suspension clindamycin HCl 300 mg capsule 300 mg PO TID 7 days #2 1 caps 09/14/24 Unknown Rx doxycycline hyclate 100 mg tablet 100 mg PO BID #10 ta bs 10/19/24 Unknown Rx Allergy/AdvReac Type Severity Reaction Status Date / Time Penicillins Allergy Severe Anaphylaxis Verified 10/30/24 07:52 amoxicillin Allergy Unknown PT UNSURE Verified 10/30/24 07:52 OF REACTION Surgical History Tubal ligation status Hx of section Social History Smoking Status: Former smoker EXAM Physical Exam Const Vital Signs: 10/30/24 07:38 Temperature 97.6 F L Temperature Source Temporal Pulse Rate 85 Respiratory Rate 16 Blood Pressure 146/103 H Blood Pressure Mean 117 Pulse Ox 100 Oxygen Delivery Method Room Air Discharge Plan Triage Chief Complaint: Ear Problem ED Provider: Ruth Mike Dx/Rx/DC Orders Prescriptions: No Action ciprofloxacin-dexamethasone 0.3-0.1 % drops,suspension 4 drp LEFT EAR Q12H 7 Days Qty: 7.5 0RF clindamycin HCl 300 mg capsule 300 mg PO TID 7 Days Qty: 21 0RF doxycycline hyclate 100 mg tablet 100 mg PO BID Qty: 10 0RF lisinopril-hydrochlorothiazide 20-12.5 mg tablet 1 tab PO DAILY metformin 1,000 mg tablet 1,000 mg PO BID duloxetine 30 mg capsule,delayed release(DR/EC) 120 mg PO DAILY albuterol sulfate 90 mcg/actuation HFA aerosol inhaler 2 puff inhalation Q4H PRN PRN (Reason: shortness of breath or wheezing) meloxicam 15 mg tablet 15 mg PO DAILY oxycodone-acetaminophen [Percocet] 5-325 mg tablet 1 tab PO Q6H PRN (Reason: pain) 3 Days Qty: 12 0RF cyclobenzaprine 10 mg tablet 10 mg PO TID PRN (Reason: Muscle Spasm) Qty: 15 0RF Primary Care Provider: Waqar Briones Referrals: Waqar Briones MD [Primary Care Provider] - Print Language: Belarusian
--- NOTE | 2024-10-30 08:44 | EX.ED.DYSGE1 ---
HPI History of Present Illness Chief Complaint: Ear Problem Informant: patient Narrative Narrative: Patient 38-year-old female with history of hypertension and diabetes presenting with worsening left-sided ear pain. Patient states he had a dull ache in her ear yesterday but starting around 2 AM she started to have more severe pain. She states it radiates from her jaw to her neck. She did she had some episode about a month and a half ago and she was seen in the ER. She has some associated nausea and vomiting from the pain. She notes that she did recently finished a course of antibiotics her status of her foot which is improving. She has been alternating Tylenol and ibuprofen (last had ibuprofen around 5 AM and Tylenol prior to that). Does not report any vision changes. Nuys any ringing of her ears. Nu[place] any hearing changes. Denies any sore throat or dental pain. No other complaints or concerns reported at this time. No rash reported. [facility] Medical History Presence of double-J stent Cholecystectomy planned Back pain Herniated disc Kidney stone Home Medications ?Medication ?Instructions ?Recorded ?Last Taken ?Type duloxetine 30 mg capsule,delayed 120 mg PO DAILY 01/21/24 Unknown History release lisinopril 20 1 tab PO DAILY 01/21/24 Unknown History mg-hydrochlorothiazide 12.5 mg tablet metformin 1,000 mg tablet 1,000 mg PO BID 01/21/24 Unknown History albuterol sulfate 90 mcg/actuation 2 puff inhalation Q4H PRN PRN 06/18/24 Unknown History aerosol inhaler shortness of breath or wheezing cyclobenzaprine 10 mg tablet 10 mg PO TID PRN Muscle Spasm #15 06/18/24 Unknown Rx TABLETS meloxicam 15 mg tablet 15 mg PO DAILY 06/18/24 Unknown History oxycodone-acetaminophen 5 mg-325 1 tab PO Q6H PRN pain 3 days #12 06/18/24 Unknown Rx mg tablet (Percocet) tabs ciprofloxacin 0.3 %-dexamethasone 4 drp LEFT EAR Q12H 7 days #7.5 mL 09/14/24 Unknown Rx 0.1 % ear drops,suspension clindamycin HCl 300 mg capsule 300 mg PO TID 7 days #21 caps 09/14/24 Unknown Rx doxycycline hyclate 100 mg tablet 100 mg PO BID #10 tabs 10/19/24 Unknown Rx cetirizine 10 mg tablet (Zyrtec) 10 mg PO DAILY #14 tabs 10/30/24 Unknown Rx fluticasone propionate 50 1 spray intranasal DAILY #16 grams 10/30/24 Unknown Rx mcg/actuation nasal spray,suspension (24 Hour Allergy Relief) pseudoephedrine HCl 60 mg tablet 60 mg PO Q6H PRN nasal congestion 10/30/24 Unknown Rx or ear pain #20 tabs Allergy/AdvReac Type Severity Reaction Status Date / Time Penicillins Allergy Severe Anaphylaxis Verified 10/30/24 07:52 amoxicillin Allergy Unknown PT UNSURE Verified 10/30/24 07:52 OF REACTION Surgical History Tubal ligation status Hx of section Social History Smoking Status: Former smoker ROS ROS ED Constitutional Constitutional ED: Denies chills or fever(s) Eyes Eyes: Denies blurry vision or change in vision ENT ENT ED: Reports ear pain left; Denies rhinorrhea or sore throat Cardiovascular Cardiovascular: Denies chest pain or palpitations Respiratory/Chest Respiratory/Chest: Denies cough Gastrointestinal Gastrointestinal: Reports nausea and vomiting Musculoskeletal Musculoskeletal: Reports neck pain Neurologic Neurologic: Reports headache(s); Denies paresthesias or weakness EXAM Physical Exam Const Vital Signs: 10/30/24 07:38 Temperature 97.6 F L Temperature Source Temporal Pulse Rate 85 Respiratory Rate 16 Blood Pressure 146/103 H Blood Pressure Mean 117 Pulse Ox 100 Oxygen Delivery Method Room Air Positive well nourished and well developed General Appearance ED: well developed and NAD HEENT Reports moist mucous membranes HEENT Narrative: No dental pain or lesions appreciated. No trismus. Normal right ear. Normal left external ear. No significant tenderness over the mastoid. No associated redness. Mild discomfort with manipulation of the ear but not severe. No lesions noted in the ear canal. No cerumen impaction present. She has a normal slightly dull left tympanic membrane with normal cone of light. No bulging or injection/erythema of the panic membrane appreciated. Able to hear rubbing of fingers with gloves from the left ear Mild nasal congestion present. Eyes PERRL and EOMs intact bilaterally Eyes Narrative: Strabismus present Neck no lymphadenopathy Neck Narrative: Normal range of motion of the neck. Chest Wall inspection of chest normal and palpation of chest normal Resp normal respiratory effort and clear to auscultation bilaterally Cardio regular rate and regular rhythm Neuro oriented x3 Sensorium / Orientation: alert Motor Exam: Negative for general weakness Psych mental status grossly normal Mood & Affect: tearful Skin no rashes or lesions noted and no wounds MDM MDM MDM Narrative Medical decision making narrative: Patient is evaluated for worsening left-sided ear pain. Differential includes otitis media, otitis externa, eustachian tube dysfunction, shingles, dentalgia/dental abscess and mastoiditis. Patient has a relatively benign physical exam and specifically normal-appearing left ear. Do not see any findings consistent with otitis media or externa. She overall is well-appearing. I do not see any lesions of the ear canal or on the face. I do not appreciate any dental abscess or infection that could be referring pain to the ear. Suspect this is eustachian tube dysfunction. Started on Afrin and Sudafed in the emergency room. Will be given a prescription for Sudafed, given the Afrin and also given prescriptions for Flonase and Zyrtec. Will give referral to ENT. Instructed to continue alternate ibuprofen and Tylenol for pain control. Counseled to not use Afrin for more than 3 days because of risk of rebound rhinorrhea/dependency with it. At this time I do not see any lesions or signs of infection requiring antiviral/by antibiotics at this time. Discharge Plan Triage Chief Complaint: Ear Problem ED Provider: Ruth Mike Dx/Rx/DC Orders Clinical Impression: Otalgia of left ear, Acute dysfunction of left eustachian tube Instructions: ED Earache Without Infection (Adult) Prescriptions: New fluticasone propionate [24 Hour Allergy Relief] 50 mcg/actuation spray,suspension 1 spray intranasal DAILY Qty: 16 0RF Rx Instructions: administer into each nostril cetirizine [Zyrtec] 10 mg tablet 10 mg PO DAILY Qty: 14 0RF pseudoephedrine HCl 60 mg tablet 60 mg PO Q6H PRN (Reason: nasal congestion or ear pain ) Qty: 20 0RF No Action ciprofloxacin-dexamethasone 0.3-0.1 % drops,suspension 4 drp LEFT EAR Q12H 7 Days Qty: 7.5 0RF clindamycin HCl 300 mg capsule 300 mg PO TID 7 Days Qty: 21 0RF doxycycline hyclate 100 mg tablet 100 mg PO BID Qty: 10 0RF lisinopril-hydrochlorothiazide 20-12.5 mg tablet 1 tab PO DAILY metformin 1,000 mg tablet 1,000 mg PO BID duloxetine 30 mg capsule,delayed release(DR/EC) 120 mg PO DAILY albuterol sulfate 90 mcg/actuation HFA aerosol inhaler 2 puff inhalation Q4H PRN PRN (Reason: shortness of breath or wheezing) meloxicam 15 mg tablet 15 mg PO DAILY oxycodone-acetaminophen [Percocet] 5-325 mg tablet 1 tab PO Q6H PRN (Reason: pain) 3 Days Qty: 12 0RF cyclobenzaprine 10 mg tablet 10 mg PO TID PRN (Reason: Muscle Spasm) Qty: 15 0RF Stand Alone Forms: ED Work / School Excuse Primary Care Provider: Waqar Briones Referrals: Aj Gtz MD [Med Staff - Active Staff] - Waqar Briones MD [Primary Care Provider] - Activity Restrictions/Additional Instructions: Please use the Afrin (oxymetazoline) 2 sprays in each nostril every 10-12 hours as needed for congestion and ear pain. Do not use for more than 3 days in a row because of significant risk of rebound/returning congestion. Please take other medications prescribed. If you develop a fever, drainage from the ear or worsening symptoms please return to the emergency room. You been given referral for ENT for outpatient follow-up given the recurrent issues of pain. You may also follow-up with your primary care doctor. Continue to alternate ibuprofen and Tylenol for further pain relief. Print Language: Palauan Disposition Disposition: Home, Self Care Discharge Date/Time: 10/30/24 09:48
[2024-10-30] MEDS: Oxymetazoline 0.05% 1 SPRAY SPRAY.BTL 2 SPRAY NASAL (08:50)
== END 2024-10-30 09:48 | disposition home or self-care (01) ==
PROVIDERS: Emergency Provider Emergency Medicine; PCP Family Medicine; Visit Provider Emergency Medicine
DX: H69.92 Unspecified Eustachian tube disorder, left ear (principal); E11.9 Type 2 diabetes mellitus without complications; Z87.891 Personal history of nicotine dependence; I10 Essential (primary) hypertension; H92.02 Otalgia, left ear; R51.9 Headache, unspecified; M54.2 Cervicalgia
CPT/HCPCS: 99282

== ENCOUNTER 2024-11-14 18:49 | Emergency (ER) | payer MEDICAID, SELFPAY ==
[2024-11-14] VITALS (19 sets, daily range): BP systolic 91–164; BP diastolic 67–96; PULSE 77–125; RESP 16–28; TEMP 36.6–36.7; O2SAT 95–98; BMI 44.4
--- NOTE | 2024-11-14 19:01 | EKG12_ITS ---
Test Reason : SYNCOPE Blood Pressure : */* mmHG Vent. Rate : 105 BPM Atrial Rate : 105 BPM P-R Int : 178 ms QRS Dur : 110 ms QT Int : 360 ms P-R-T Axes : 55 14 60 degrees QTcB Int : 475 ms Sinus tachycardia Incomplete right bundle branch block Borderline ECG Confirmed by KELLY CHAPIN, COOPER ([id number]), slot editor LÁZARO WATERS ([id number]) on 11/16/2024 6:43:55 AM Referred By: MERT Confirmed By: COOPER MENDOZA MD
--- NOTE | 2024-11-14 19:01 | CT_ITS ---
PROCEDURE: BRAIN/HEAD WITHOUT CONTRAST REASON FOR EXAM: HEADACHE, SYNCOPE TECHNIQUE: Head CT without intravenous contrast. COMPARISON: None. FINDINGS: There is no acute intracranial hemorrhage, mass effect, or evidence of large acute infarct. Brain: Normal CSF Spaces: Normal Sinuses/Mastoids: Clear at visualized levels Bones: Unremarkable CT/Brain/Head without Contrast IMPRESSION: Unremarkable noncontrast head CT One or more dose reduction techniques were used (e.g., Automated exposure contr ol, adjustment of the mA and/or kV according to patient size, use of iterative reconstruction technique). Reading Location: [id number]
--- NOTE | 2024-11-14 19:02 | EX.ED.DYSGE1 ---
HPI History of Present Illness Chief Complaint: Syncope Detail of Chief Complaint: Syncope Informant: patient Narrative Narrative: Patient presents to the emergency department with complaint of a syncopal episode this morning. Patient states that she was taking a hot shower and the next thing she remembers that she was at the bottom of the tub. She is unsure how long she may have been passed out. She has not had this happen before. She did bruise her right arm. Today throughout the day she just not felt right. She is complaining of a headache. 20 minutes ago she tried to go up her steps and got lightheaded and dizzy and kind of fell onto her buttocks onto the step but did not pass out. Comes in for evaluation. She had a minimal cough today that she attributed to allergies. She has had no fever. She denies body aches. She denies sore throat. She denies chest pain. At times she feels like her heart is racing. [facility] Medical History Presence of double-J stent Cholecystectomy planned Back pain Herniated disc Kidney stone Home Medications ?Medication ?Instructions ?Recorded ?Last Taken ?Type duloxetine 30 mg capsule,delayed 120 mg PO DAILY 01/21/24 Unknown History release lisinopril 20 1 tab PO DAILY 01/21/24 Unknown History mg-hydrochlorothiazide 12.5 mg tablet metformin 1,000 mg tablet 1,000 mg PO BID 01/21/24 Unknown History albuterol sulfate 90 mcg/actuation 2 puff inhalation Q4H PRN PRN 06/18/24 Unknown History aerosol inhaler shortness of breath or wheezing cyclobenzaprine 10 mg tablet 10 mg PO TID PRN Muscle Spasm #15 06/18/24 Unknown Rx TABLETS meloxicam 15 mg tablet 15 mg PO DAILY 06/18/24 Unknown History oxycodone-acetaminophen 5 mg-325 1 tab PO Q6H PRN pain 3 days #12 06/18/24 Unknown Rx mg tablet (Percocet) tabs ciprofloxacin 0.3 %-dexamethasone 4 drp LEFT EAR Q12H 7 days #7.5 mL 09/14/24 Unknown Rx 0.1 % ear drops,suspension clindamycin HCl 300 mg capsule 300 mg PO TID 7 days #21 caps 09/14/24 Unknown Rx doxycycline hyclate 100 mg tablet 100 mg PO BID #10 tabs 10/19/24 Unknown Rx cetirizine 10 mg tablet (Zyrtec) 10 mg PO DAILY #14 tabs 10/30/24 Unknown Rx fluticasone propionate 50 1 spray intranasal DAILY #16 grams 10/30/24 Unknown Rx mcg/actuation nasal spray,suspension (24 Hour Allergy Relief) pseudoephedrine HCl 60 mg tablet 60 mg PO Q6H PRN nasal congestion 10/30/24 Unknown Rx or ear pain #20 tabs Allergy/AdvReac Type Severity Reaction Status Date / Time Penicillins Allergy Severe Anaphylaxis Verified 10/30/24 07:52 amoxicillin Allergy Unknown PT UNSURE Verified 10/30/24 07:52 OF REACTION Surgical History Tubal ligation status Hx of section Social History Smoking Status: Current every day smoker tobacco type: e-cigarettes ROS ROS ED Review of Systems ROS Unobtainable: other Constitutional Constitutional ED: Reports lethargy; Denies chills, fever(s), sweats or weight loss Eyes Eyes: Denies blurry vision, change in vision or diplopia ENT ENT ED: Denies rhinorrhea or sore throat Cardiovascular Cardiovascular: Reports racing heartbeat; Denies chest pain or orthopnea Respiratory/Chest Respiratory/Chest: Reports cough; Denies dyspnea, dyspnea on exertion, orthopnea or sputum Gastrointestinal Gastrointestinal: Denies abdominal pain, diarrhea, nausea or vomiting Genitourinary Genitourinary ED: Denies dysuria, hematuria or urinary frequency Musculoskeletal Musculoskeletal: Denies arthralgias, back pain, myalgias or neck pain Integumentary Denies abscess, Abrasions or rash Neurologic Neurologic: Reports headache(s) and other Details: Syncope ; Denies weakness Psychiatric Psychiatric: Denies anxiety, depression or suicidal thoughts Endocrine Endocrinology: Denies polydipsia, polyphagia or polyuria Hematologic/Lymphatic Hematologic/Lymphatic: Denies easy bleeding, easy bruising or lymphadenopathy Allergic/Immunologic Allergic/Immunologic ED: Denies mouth swelling, tongue swelling or urticaria EXAM Physical Exam Const Vital Signs: 11/14/24 18:50 11/14/24 19:21 11/14/24 19:24 Temperature 98 F Temperature Source Oral Pulse Rate 117 H Pulse Rate [Lying] 98 Pulse Rate [Sitting (for 1 minute prior to obtaining)] 113 H Pulse Rate [Standing (for 1 minute prior to obtaining)] 125 H Respiratory Rate 16 Respiratory Effort Normal Non-Labored Respiratory Pattern Normal Blood Pressure 164/96 H Blood Pressure [Lying] 140/80 H Blood Pressure [Sitting (for 1 minute prior to obtaining)] 144/88 H Blood Pressure [Standing (for 1 minute prior to obtaining)] 135/79 H Blood Pressure Mean 118 Blood Pressure Mean [Lying] 100 Blood Pressure Mean [Sitting (for 1 minute prior to obtaining)] 106 Blood Pressure Mean [Standing (for 1 minute prior to obtaining)] 97 Pulse Ox 98 Oxygen Delivery Method Room Air 11/14/24 20:50 11/14/24 21:17 Temperature Temperature Source Pulse Rate 89 Pulse Rate [Lying] 81 Pulse Rate [Sitting (for 1 minute prior to obtaining)] 82 Pulse Rate [Standing (for 1 minute prior to obtaining)] 77 Respiratory Rate 19 H Respiratory Effort Respiratory Pattern Blood Pressure 114/83 H Blood Pressure [Lying] 121/90 H Blood Pressure [Sitting (for 1 minute prior to obtaining)] 114/76 Blood Pressure [Standing (for 1 minute prior to obtaining)] 121/83 H Blood Pressure Mean 93 Blood Pressure Mean [Lying] 100 Blood Pressure Mean [Sitting (for 1 minute prior to obtaining)] 88 Blood Pressure Mean [Standing (for 1 minute prior to obtaining)] 95 Pulse Ox 97 Oxygen Delivery Method Room Air Positive well nourished and well developed General Appearance ED: well developed and NAD HEENT Reports TM's clear and moist mucous membranes normocephalic and atraumatic; Negative for trauma or tenderness Tympanic Membrane ED: Yes TM's clear Eyes PERRL and EOMs intact bilaterally General Eye ED: Negative for pale conjunctiva or scleral icterus Neck no lymphadenopathy, supple and no JVD General: Negative for tenderness Chest Wall inspection of chest normal and palpation of chest normal Chest: Negative for tenderness Resp normal respiratory effort and clear to auscultation bilaterally Effort and Inspection: Negative for respiratory distress or pain with movement Auscultation: Negative for rhonchi, wheezes or diminished lung sounds Cardio regular rate, regular rhythm, S1 normal heart sound, S2 normal heart sound and no murmurs Peripheral Pulses: pulses 2+ throughout GI normal to inspection, nondistended, normoactive bowel sounds, soft to palpation, non-tender, non-distended and no masses Back/Spine no CVA tenderness and no thoracic nor lumbar tenderness Extremity normal to inspection Extremity Narrative: Right upper extremity-patient has superficial abrasion over the posterior aspect of the upper arm just above the elbow. No obvious deformity. No significant bony tenderness on exam. She has some mild soft tissue swelling about the distal right forearm but again minimal bony tenderness on exam she has good range of motion flexion extension at the wrist. Neurovascularly intact General Extremety ED: Negative for edema General Extremity: Negative for edema Neuro oriented x3, CN's II-XII intact bilaterally, no sensory deficits noted and gait normal Sensorium / Orientation: awake, alert, oriented to person, oriented to place and oriented to time Motor Exam: strength 5/5 throughout and strength abnormal Psych mental status grossly normal Skin no rashes or lesions noted and no wounds MDM MDM MDM Narrative Medical decision making narrative: Patient presents the emergency department after a syncopal episode that occurred this morning around 8 AM. She was in a hot shower and then remembers waking up in the tub. Complaining of a headache. Clinically looks well. She also had some episodes of lightheadedness with going today. She is EKG obtained arrival shows sinus rhythm with ventricular rate of 105 bpm with incomplete right bundle branch block. CBC with differential showed a minimally hemoglobin 14 and platelet count of 380. For unremarkable. D-dimer was normal. Did send off a urine culture as she did have 5-10 WBCs and +1 bacteria but she only 25 leukocyte esterase and negative for nitrites. CT scan of the brain without contrast was unremarkable. COVID flu and RSV testing is pending. Patient did have orthostatic vital signs obtained on arrival and she was dizzy with standing and heart rate did jump up almost 30 points. She received a liter fluid bolus. Repeat orthostatics were negative. Lab Data Attestation: I reviewed the patient's lab results. Labs: Laboratory Results - last 24 hr 11/14/24 19:26 WBC 11.8 H RBC 4.36 Hgb 14.1 Hct 40.1 MCV 92.0 MCH 32.3 H MCHC 35.2 RDW Std Deviation 41.1 RDW Coeff of [place] 12.2 Plt Count 380 MPV 10.0 Immature Gran % (Auto) 0.400 Neut % (Auto) 72.5 H Lymph % (Auto) 20.4 [place] % (Auto) 5.8 Eos % (Auto) 0.3 Baso % (Auto) 0.6 Absolute Neuts (auto) 8.6 H Absolute Lymphs (auto) 2.41 Nucleated RBC % 0 D-Dimer Quant (PE/DVT) < 0.27 L Sodium 139 Potassium 3.7 Chloride 104 Carbon Dioxide 21.1 Anion Gap 14 BUN 12 Creatinine 0.65 L Estim Creat Clear Calc 147.80 Est GFR (MDRD) Non-Af 116 BUN/Creatinine Ratio 17.8 Glucose 160 H Calcium 9.3 Urine Color Yellow Urine Clarity Sl. Cloudy Urine pH 6.0 Ur Specific [place] 1.025 Urine Protein 30 H Urine Glucose (UA) 50 H Urine Ketones 5 H Urine Occult Blood Negative Urine Nitrite Negative Urine Bilirubin Negative Urine Urobilinogen Normal Ur Leukocyte Esterase 25 H Urine RBC 0-5 SEEN Urine WBC 5-10 SEEN Ur Squamous Epith Cells 0-5 SEEN Urine Bacteria 1+ Urine Mucus 0 SEEN Radiography Diagnostic Testing: Clinical Impression(s) from Imaging Studies Brain CT 11/14/24 19:01 IMPRESSION: Unremarkable noncontrast head CT One or more dose reduction techniques were used (e.g., Automated exposure control, adjustment of the mA and/or kV according to patient size, use of iterative reconstruction technique). Reading Location: [facility] EKG Initial EKG: Attestation: I personally reviewed and interpreted this EKG as follows: Comments: Sinus rhythm with ventricular rate of 105 bpm with incomplete right bundle branch block Discharge Plan Triage Chief Complaint: Syncope ED Provider: Pedro Soares Dx/Rx/DC Orders Clinical Impression: Syncope, Dehydration Instructions: ED Hypotension, Orthostatic, ED Fainting, Vagal Reaction, ED Fainting, Uncertain Cause Prescriptions: No Action ciprofloxacin-dexamethasone 0.3-0.1 % drops,suspension 4 drp LEFT EAR Q12H 7 Days Qty: 7.5 0RF clindamycin HCl 300 mg capsule 300 mg PO TID 7 Days Qty: 21 0RF doxycycline hyclate 100 mg tablet 100 mg PO BID Qty: 10 0RF fluticasone propionate [24 Hour Allergy Relief] 50 mcg/actuation spray,suspension 1 spray intranasal DAILY Qty: 16 0RF Rx Instructions: administer into each nostril cetirizine [Zyrtec] 10 mg tablet 10 mg PO DAILY Qty: 14 0RF pseudoephedrine HCl 60 mg tablet 60 mg PO Q6H PRN (Reason: nasal congestion or ear pain ) Qty: 20 0RF lisinopril-hydrochlorothiazide 20-12.5 mg tablet 1 tab PO DAILY metformin 1,000 mg tablet 1,000 mg PO BID duloxetine 30 mg capsule,delayed release(DR/EC) 120 mg PO DAILY albuterol sulfate 90 mcg/actuation HFA aerosol inhaler 2 puff inhalation Q4H PRN PRN (Reason: shortness of breath or wheezing) meloxicam 15 mg tablet 15 mg PO DAILY oxycodone-acetaminophen [Percocet] 5-325 mg tablet 1 tab PO Q6H PRN (Reason: pain) 3 Days Qty: 12 0RF cyclobenzaprine 10 mg tablet 10 mg PO TID PRN (Reason: Muscle Spasm) Qty: 15 0RF Primary Care Provider: Waqar Briones Referrals: Waqar Briones MD [Primary Care Provider] - 3-5 Days Print Language: Mauritian Disposition Disposition: Home, Self Care
[2024-11-14] MEDS: 0.9% Normal Saline (1000mL) 1,000 ML 1000 ML IV (19:25)
[2024-11-14 19:37] LABS: Mucous, Urine 0 SEEN /hpf (<or=2+)
[2024-11-14 19:39] LABS: Absolute Lymphocyte Count 2.41 X10^3/uL (0.83-4.51); Absolute Neutrophil Count 8.6 X10^3/uL (2.0-7.7); Basophil# 0.07 X10^3/uL; Basophil% 0.6 % (0-1); Eosinophil# 0.03 X10^3/uL; Eosinophils% 0.3 % (0-5); Hematocrit 40.1 % (37-47); Hemoglobin 14.1 g/dL (12.0-15.0); Lymphocyte # 2.41 X10^3/ul (0.83-4.51); Lymphocyte % 20.4 % (19-41); Mean Corp Hgb Conc 35.2 g/dL (32-36); Mean Corpuscular Hgb 32.3 pg (27.0-32.0); Monocyte# 0.69 X10^3/uL; Monocyte% 5.8 % (0-10); NRBC Flagged by Analyzer 0 % (0-5); Neutrophil # 8.56 X10^3/uL (2.7-7.7); Neutrophil % 72.5 % (47-70); Platelet Count 380 K/mm3 (150-450); RBC Distribution Width CV 12.2 % (11.6-14.6); RBC Distribution Width SD 41.1 fl (35.1-43.9); Red Blood Count 4.36 M/mm3 (4.2-5.4); White Blood Count 11.8 K/mm3 (4.4-11.0)
[2024-11-14 19:45] LABS: Color, Urine Yellow (Yellow); Glucose, Dipstick 50 mg/dl (Normal); Ketone-Dipstick 5 mg/dl (Negative); Leukocyte Esterase-Dipstick 25 /ul (Negative); Nitrite-Dipstick Negative (Negative); Occult Blood-Urine Negative /ul (Negative); Protein-Dipstick 30 mg/dl (Negative); Specific Gravity, Urine 1.025 (1.002-1.030); Urine Bilirubin Dipstick Negative (Negative); Urine Clarity Sl. Cloudy (Clear); Urine Urobilinogen Normal (Normal)
[2024-11-14 20:02] LABS: Anion Gap 14 (5-15); BUN 12 mg/dL (4-19); BUN/Creat Ratio 17.8 RATIO (10-20); Calcium,Total 9.3 mg/dL (7.6-11.0); Carbon Dioxide 21.1 mmol/L (21.0-32.0); Chloride 104 mmol/L (98-108); Creatinine, Serum 0.65 mg/dL (0.70-1.20); EST Glomerular Filtration Rate 116 (>60); Glucose 160 mg/dL (70-99); Potassium 3.7 mmol/L (3.3-5.1); Sodium Level 139 mmol/L (133-145)
[2024-11-14 20:09] LABS: D-Dimer Quantitative (DVT/PE) < 0.27 FEU/ug/m (0.27-0.49)
[2024-11-14 20:32] LABS: Bacteria 1+ /hpf (None Seen); Red Blood Cells-Urine 0-5 SEEN /hpf (0-5); Squamous Epithelial Cells - UA 0-5 SEEN /hpf (5-10); White Blood Cells 5-10 SEEN /hpf (0-5)
== END 2024-11-14 22:43 | disposition home or self-care (01) ==
PROVIDERS: Emergency Provider Emergency Medicine; PCP Family Medicine; Visit Provider Emergency Medicine
DX: R55 Syncope and collapse (principal); E86.0 Dehydration; I45.10 Unspecified right bundle-branch block; R42 Dizziness and giddiness; F17.290 Nicotine dependence, other tobacco product, uncomplicated; R51.9 Headache, unspecified
CPT/HCPCS: 70450; 80048; 81001; 85025; 85379; 87086; 87088; 87631; 93005; 96360; 96361; 99285; A4216